=== PATIENT | male | born 1980 | race Caucasian/White ===

== ENCOUNTER 2019-03-07 12:22 | Emergency (ER) | payer OTHER, SELFPAY ==
[2019-03-07 12:29] VITALS: BMI 27.3
[2019-03-07 12:30] VITALS: BP 162/100; PULSE 70; RESP 15; TEMP 36.8; O2SAT 100
--- NOTE | 2019-03-07 12:50 | ED.WOUNDLAC ---
HPI - Wound/Laceration <ISAI Bazzi - Last Filed: 03/07/19 14:54> General Chief Complaint: Wound/Laceration Stated Complaint: Split scalp Time Seen by Provider: 03/07/19 12:28 Source: patient Mode of arrival: ambulatory Limitations: no limitations History of Present Illness HPI narrative: The patient is a 38-year-old male nonsmoker who does not take blood thinners presents with a chief complaint of laceration to the top of his head. He states he hit his head on the [employer] car. He believes his tetanus is up today in the past 5 years. He denies any LOC, neck pain or back pain. He denies any nausea or vomiting. States he was initially dazed but feels better now. He states his laceration bled a lot. He states this happened while he was getting ready to go hiking with his family. Related Data Allergies Allergy/AdvReac Type Severity Reaction Status Date / Time No Known Drug Allergies Allergy Verified 03/07/19 12:29 Review of Systems <ISAI Bazzi - Last Filed: 03/07/19 14:54> Review of Systems GENERAL: Denies chills, fatigue, malaise, fever, sweats. HEENT: Denies sinus pain, ear pain, sore throat, difficulty swallowing, dizziness. RESPIRATORY: Denies dyspnea, cough, wheezing, hemoptysis, sputum. CARDIOVASCULAR: Denies chest pain, palpitations, orthopnea, edema, GASTROINTESTINAL: Denies nausea, vomiting, abdominal pain, diarrhea, constipation, melena. : Denies dysuria, frequency, incontinence, hematuria, urinary retention. MUSCULOSKELETAL: denies weakness, joint pain, or bony pain SKIN: See HPI NEUROLOGIC: Denies weakness, headache, numbness, change in speech, confusion, seizures, incoordination. PSYCHIATRIC: No concerning psychosocial issues. 12 point review of systems is negative except for those stated above PFSH <ISAI Bzazi - Last Filed: 03/07/19 14:54> Social History Smoking Status: Never smoker Social History Smoking Status: Never smoker Exam <ZABRINA BazziSUSHIL - Last Filed: 03/07/19 14:54> Narrative Exam Narrative: GENERAL: This is a well-nourished, well-developed patient, in no acute distress HEAD: Atraumatic. Normocephalic. No temporal or scalp tenderness. EYES: Pupils equal round and reactive. Extraocular motions intact. No scleral icterus. No injection or drainage. ENT: Nose without bleeding, purulent drainage or septal hematoma. Throat without erythema, tonsillar hypertrophy or exudate. Uvula midline. Airway patent. No hemotympanum bilaterally. TMs pearly fields bilaterally. NECK: Trachea midline. No JVD or lymphadenopathy. Supple, nontender, no meningeal signs. CARDIOVASCULAR: Regular rate and rhythm RESPIRATORY: Clear to auscultation. Breath sounds equal bilaterally. No wheezes, rales, or rhonchi. No cough. No increased respiratory effort. No accessory muscle use. GASTROINTESTINAL: Abdomen soft, non-tender, nondistended. No hepato-splenomegaly, or palpable masses. No guarding. EXTREMITIES: No clubbing, cyanosis, or edema. No joint tenderness, effusion, or edema noted. BACK: Nontender without deformity or crepitance. No flank tenderness. NEURO: AOx3. Strength is equal upper and lower extremities bilaterally. Stable gait. No gross cranial nerve deficit. SKIN: Full thickness laceration noted scalp. 2.5 cm. Well-approximated. Linear No obvious muscle or tendon involvement.. No Jean signs. No periorbital ecchymosis. Initial Vital Signs Initial Vital Signs: Vital Signs Temperature 98.3 F 03/07/19 12:30 Pulse Rate 70 03/07/19 12:30 Respiratory Rate 15 03/07/19 12:30 Blood Pressure 162/100 H 03/07/19 12:30 Pulse Oximetry 100 03/07/19 12:30 <Farzana Pan DO - Last Filed: 03/09/19 23:18> Initial Vital Signs Initial Vital Signs: Vital Signs Temperature 98.3 F 03/07/19 12:30 Pulse Rate 70 03/07/19 12:30 Respiratory Rate 15 03/07/19 12:30 Blood Pressure 162/100 H 03/07/19 12:30 Pulse Oximetry 100 03/07/19 12:30 Procedures <ISAI Bazzi - Last Filed: 03/07/19 14:54> Laceration Repair Laceration 1: Site: scalp Size (cm): 2.5 Description: linear Depth: simple, single layer Local Anesthetic: other anesthetic (lido cream) Pre-repair: wound explored, irrigated extensively and deep structures intact (With sterile water, chlorhexidine) Skin layer closed with: jose (5) Scores <ZABRINA Bazzi - Last Filed: 03/07/19 14:54> GCS Martha coma scale eye opening: Spontaneous [place] coma scale verbal response: Orientated Martha coma scale motor response: Obey commands [place] coma scale total score: 15 Nexus Score for C-Spine Focal Neurologic deficit present: No Midline spinal tenderness present: No Altered level of conciousness present: No Intoxication present: No Distracting Injury Present: No Nexus Criteria for C-spine: 0 Course <ZABRINA Bazzi - Last Filed: 03/07/19 14:54> Orders Ordered: Discontinued Medications Ketorolac Tromethamine (Toradol) 60 mg IM NOW ONE Stop: 03/07/19 13:45 Last Admin: 03/07/19 14:25 Dose: 60 mg Lidocaine/Prilocaine (Lidocaine-Prilocaine Cream) 5 gm TOP NOW ONE Stop: 03/07/19 12:37 Last Admin: 03/07/19 12:54 Dose: 5 gm Vital Signs - 8 hr 03/07/19 12:30 03/07/19 14:38 Temperature 98.3 F Pulse Rate 70 64 Respiratory Rate 15 15 Blood Pressure [Right Arm] 162/100 H 138/94 H Pulse Oximetry 100 100 <Farzana Pan DO - Last Filed: 03/09/19 23:18> Orders Ordered: Discontinued Medications Ketorolac Tromethamine (Toradol) 60 mg IM NOW ONE Stop: 03/07/19 13:45 Last Admin: 03/07/19 14:25 Dose: 60 mg Lidocaine/Prilocaine (Lidocaine-Prilocaine Cream) 5 gm TOP NOW ONE Stop: 03/07/19 12:37 Last Admin: 03/07/19 12:54 Dose: 5 gm Vital Signs - 8 hr 03/07/19 12:30 03/07/19 14:38 Temperature 98.3 F Pulse Rate 70 64 Respiratory Rate 15 15 Blood Pressure [Right Arm] 162/100 H 138/94 H Pulse Oximetry 100 100 [facility] - Wound/Laceration <JUAN Bazzi-BC - Last Filed: 03/07/19 14:54> [facility] Narrative Medical decision making narrative: The patient is a 38-year-old male who presents with a chief complaint of laceration to his scalp. The wound was cleansed with chlorhexidine, sterile saline, numbed with lidocaine and stapled as per procedural note. His C-spine is cleared by nexus criteria. He had no complaints of neck or back pain. No loss of consciousness or remain GCS 15 throughout his stay in the emergency department. I discussed at length monitoring for signs and symptoms of infection such as redness pus fever etc. Encouraged follow-up with his PCP for staple removal in next 7-14 days. Discussed coming back to the ER for any acute concerns such as confusion etc. Patient has no questions or concerns upon discharge. States understanding of follow-up as well as return precautions. Discharge Plan Departure Patient Disposition: Home Clinical Impression: Laceration Discharge Date/Time: 03/07/19 14:54 Interventions: ED Discharge Assessment Last Done: 03/07/19 14:51 Instructions: DI for Laceration Repair, DI for Laceration Repair -- [place] Activity Restrictions/Additional Instructions: Please follow-up with a primary care provider in approximately 7-14 days for staple removal. Please monitor for signs and symptoms of infection such as redness, pus and fever. Please be re-evaluated if any of these occur. Please monitor for any confusion, repeat vomiting or signs of a head injury. Please monitor for any neurological changes. Please come back to the emergency department for any acute concerns. Referrals: [facility] [Provider Group] <Farzana Pan DO - Last Filed: 03/09/19 23:18> [facility] Attending Maryature Attestation: I was immediately available in the department for consultation. Documentation has been reviewed. I agree with assessment and plan.
--- NOTE | 2019-03-07 12:53 | ED_ITS ---
HPI - Wound/Laceration <ISAI Bazzi - Last Filed: 03/07/19 14:54> General Chief Complaint: Wound/Laceration Stated Complaint: Split scalp Time Seen by Provider: 03/07/19 12:28 Source: patient Mode of arrival: ambulatory Limitations: no limitations History of Present Illness HPI narrative: The patient is a 38-year-old male nonsmoker who does not take blood thinners presents with a chief complaint of laceration to the top of his head. He states he hit his head on the [employer] car. He believes his tetanus is up today in the past 5 years. He denies any LOC, neck pain or back pain. He denies any nausea or vomiting. States he was initially dazed but feels better now. He states his laceration bled a lot. He states this happened while he was getting ready to go hiking with his family. Related Data Allergies Allergy/AdvReac Type Severity Reaction Status Date / Time No Known Drug Allergies Allergy Verified 03/07/19 12:29 Review of Systems <ISAI Bazzi - Last Filed: 03/07/19 14:54> Review of Systems GENERAL: Denies chills, fatigue, malaise, fever, sweats. HEENT: Denies sinus pain, ear pain, sore throat, difficulty swallowing, dizziness. RESPIRATORY: Denies dyspnea, cough, wheezing, hemoptysis, sputum. CARDIOVASCULAR: Denies chest pain, palpitations, orthopnea, edema, GASTROINTESTINAL: Denies nausea, vomiting, abdominal pain, diarrhea, constipation, melena. : Denies dysuria, frequency, incontinence, hematuria, urinary retention. MUSCULOSKELETAL: denies weakness, joint pain, or bony pain SKIN: See HPI NEUROLOGIC: Denies weakness, headache, numbness, change in speech, confusion, seizures, incoordination. PSYCHIATRIC: No concerning psychosocial issues. 12 point review of systems is negative except for those stated above PFSH <ISAI Bazzi - Last Filed: 03/07/19 14:54> Social History Smoking Status: Never smoker Social History Smoking Status: Never smoker Exam <ZABRINA BazziSUSHIL - Last Filed: 03/07/19 14:54> Narrative Exam Narrative: GENERAL: This is a well-nourished, well-developed patient, in no acute distress HEAD: Atraumatic. Normocephalic. No temporal or scalp tenderness. EYES: Pupils equal round and reactive. Extraocular motions intact. No scleral icterus. No injection or drainage. ENT: Nose without bleeding, purulent drainage or septal hematoma. Throat without erythema, tonsillar hypertrophy or exudate. Uvula midline. Airway patent. No hemotympanum bilaterally. TMs pearly fields bilaterally. NECK: Trachea midline. No JVD or lymphadenopathy. Supple, nontender, no meningeal signs. CARDIOVASCULAR: Regular rate and rhythm RESPIRATORY: Clear to auscultation. Breath sounds equal bilaterally. No wheezes, rales, or rhonchi. No cough. No increased respiratory effort. No accessory muscle use. GASTROINTESTINAL: Abdomen soft, non-tender, nondistended. No hepato- splenomegaly, or palpable masses. No guarding. EXTREMITIES: No clubbing, cyanosis, or edema. No joint tenderness, effusion, or edema noted. BACK: Nontender without deformity or crepitance. No flank tenderness. NEURO: AOx3. Strength is equal upper and lower extremities bilaterally. Stable gait. No gross cranial nerve deficit. SKIN: Full thickness laceration noted scalp. 2.5 cm. Well-approximated. Linear No obvious muscle or tendon involvement.. No Jean signs. No periorbital ecchymosis. Initial Vital Signs Initial Vital Signs: Vital Signs Temperature 98.3 F 03/07/19 12:30 Pulse Rate 70 03/07/19 12:30 Respiratory Rate 15 03/07/19 12:30 Blood Pressure 162/100 H 03/07/19 12:30 Pulse Oximetry 100 03/07/19 12:30 <Farzana Pan DO - Last Filed: 03/09/19 23:18> Initial Vital Signs Initial Vital Signs: Vital Signs Temperature 98.3 F 03/07/19 12:30 Pulse Rate 70 03/07/19 12:30 Respiratory Rate 15 03/07/19 12:30 Blood Pressure 162/100 H 03/07/19 12:30 Pulse Oximetry 100 03/07/19 12:30 Procedures <ISAI Bazzi - Last Filed: 03/07/19 14:54> Laceration Repair Laceration 1: Site: scalp Size (cm): 2.5 Description: linear Depth: simple, single layer Local Anesthetic: other anesthetic (lido cream) Pre-repair: wound explored, irrigated extensively and deep structures intact (With sterile water, chlorhexidine) Skin layer closed with: edgar (5) Scores <ZABRINA Bazzi - Last Filed: 03/07/19 14:54> GCS [place] coma scale eye opening: Spontaneous Martha coma scale verbal response: Orientated [place] coma scale motor response: Obey commands Martha coma scale total score: 15 Nexus Score for C-Spine Focal Neurologic deficit present: No Midline spinal tenderness present: No Altered level of conciousness present: No Intoxication present: No Distracting Injury Present: No Nexus Criteria for C-spine: 0 Course <ZABRINA Bazzi - Last Filed: 03/07/19 14:54> Orders Ordered: Discontinued Medications Ketorolac Tromethamine (Toradol) 60 mg IM NOW ONE Stop: 03/07/19 13:45 Last Admin: 03/07/19 14:25 Dose: 60 mg Lidocaine/Prilocaine (Lidocaine-Prilocaine Cream) 5 gm TOP NOW ONE Stop: 03/07/19 12:37 Last Admin: 03/07/19 12:54 Dose: 5 gm Vital Signs - 8 hr 03/07/19 12:30 03/07/19 14:38 Temperature 98.3 F Pulse Rate 70 64 Respiratory Rate 15 15 Blood Pressure [Right Arm] 162/100 H 138/94 H Pulse Oximetry 100 100 <Farzana Pan DO - Last Filed: 03/09/19 23:18> Orders Ordered: Discontinued Medications Ketorolac Tromethamine (Toradol) 60 mg IM NOW ONE Stop: 03/07/19 13:45 Last Admin: 03/07/19 14:25 Dose: 60 mg Lidocaine/Prilocaine (Lidocaine-Prilocaine Cream) 5 gm TOP NOW ONE Stop: 03/07/19 12:37 Last Admin: 03/07/19 12:54 Dose: 5 gm Vital Signs - 8 hr 03/07/19 12:30 03/07/19 14:38 Temperature 98.3 F Pulse Rate 70 64 Respiratory Rate 15 15 Blood Pressure [Right Arm] 162/100 H 138/94 H Pulse Oximetry 100 100 [facility] - Wound/Laceration <JUAN Bazzi-BC - Last Filed: 03/07/19 14:54> [facility] Narrative Medical decision making narrative: The patient is a 38-year-old male who presents with a chief complaint of laceration to his scalp. The wound was cleansed with chlorhexidine, sterile saline, numbed with lidocaine and stapled as per procedural note. His C-spine is cleared by nexus criteria. He had no complaints of neck or back pain. No loss of consciousness or remain GCS 15 throughout his stay in the emergency department. I discussed at length monitoring for signs and symptoms of infection such as redness pus fever etc. Encouraged follow-up with his PCP for staple removal in next 7-14 days. Discussed coming back to the ER for any acute concerns such as confusion etc. Patient has no questions or concerns upon discharge. States understanding of follow-up as well as return precautions. Discharge Plan Departure Patient Disposition: Home Clinical Impression: Laceration Discharge Date/Time: 03/07/19 14:54 Interventions: ED Discharge Assessment Last Done: 03/07/19 14:51 Instructions: DI for Laceration Repair, DI for Laceration Repair -- [place] Activity Restrictions/Additional Instructions: Please follow-up with a primary care provider in approximately 7-14 days for staple removal. Please monitor for signs and symptoms of infection such as redness, pus and fever. Please be re-evaluated if any of these occur. Please monitor for any confusion, repeat vomiting or signs of a head injury. Please monitor for any neurological changes. Please come back to the emergency department for any acute concerns. Referrals: [facility] [Provider Group] <Farzana Pan DO - Last Filed: 03/09/19 23:18> [facility] Attending Maryature Attestation: I was immediately available in the department for consultation. Documentation has been reviewed. I agree with assessment and plan.
[2019-03-07] MEDS: LIDOCAINE/PRILOCAINE 5 GM TOP (12:54)
--- NOTE | 2019-03-07 12:56 | PC.NURSE ---
Full thickness laceration to top/front of scalp/head. Bleeding controlled [employer]. Wound cleansed with NS and topical numbing medicine applied per orders. Patient alert and oriented and answering questions appropriately. Denies N/V. TDaP UTD.
[2019-03-07] MEDS: KETOROLAC 60 MG/2 ML VIAL IM (14:25)
[2019-03-07 14:38] VITALS: BP 138/94; PULSE 64; RESP 15; O2SAT 100
== END 2019-03-07 14:54 | disposition home or self-care (01) ==
PROVIDERS: Emergency Provider Nurse Practitioner Family
DX: S01.01XA Laceration without foreign body of scalp, initial encounter (principal)
CPT/HCPCS: 12001; 96372; 99282; 99283; J1885

== ENCOUNTER → 2019-10-30 09:13 | Outpatient (CLI) | payer OTHER, SELFPAY ==
[2019-11-01 08:22] LABS: COVID19 Sendout Not Detected (Not Detected)
== END ==
PROVIDERS: Visit Provider Physician Assistant
DX: Z11.59 Encounter for screening for other viral diseases (principal)
CPT/HCPCS: 87635

== ENCOUNTER 2024-03-03 08:45 | Day surgery (SDC) | payer OTHER, SELFPAY ==
--- NOTE | 2024-03-03 | PATH_ITS ---
[facility] Accession Number: [id number] No. of containers..02 Tissue . 01 Material submitted: . PART A: colon - RANDOM COLON BIOPSIES PART B: colon - COLON POLYP @ 15 CM . 01 Diagnosis: Part A: RANDOM COLON BIOPSIES: Colonic mucosa with no diagnostic alterations. No active inflammation, granulomas, dysplasia, or malignancy identified. No evidence of colitis. . Part B: COLON POLYP @ 15 CM: Serrated polyp with crypt architectural features consistent with sessile serrated adenoma. [facility] 03/08/2024 1324 Local . 01 Electronically signed: . Mingo Yao MD, Pathologist NPI- [id number] . 01 Gross description: . A. Received in formalin with two patient identifiers and random colon, are six llamas soft tissue fragments, 0.2 to 0.6 cm in greatest dimension. Submitted in A1. . B. Received in formalin with two patient identifiers and colon polyp at 15 cm, are two llamas to brown soft tissue fragments, 0.5 to 1.1 cm in greatest dimension. Submitted in B1. ([id number]) /MRV 03/08/2024 1324 Local . 01 Pathologist provided ICD-10: D12.6 . 01 CPT . 443451, [id number] Specimen Comment: A courtesy copy of this report has been sent to [phone] Performed at: [address] [id number] MD Mingo Yao MD Phone: [phone]
[2024-03-03 09:12] VITALS: BP 164/104; PULSE 70; RESP 16; TEMP 36.4; O2SAT 100
--- NOTE | 2024-03-03 09:20 | PM.HP.1 ---
History of Present Illness History of Present Illness [place] [facility] [place]ative: Abdominal discomfort and bloating with loose stools. Need for colonoscopy [facility] Social History Smoking Status: Never smoker Meds Home Medications and Allergies Allergies Allergy/AdvReac Type Severity Reaction Status Date / Time No Known Drug Allergies Allergy Verified 03/03/24 09:12 Exam Narrative Exam Narrative: Oropharynx free of lesions Chest clear to auscultation percussion Cardiac exam reveals no S3 murmur Assessment & Plan Assessment & Plan narrative: Abdominal bloating discomfort and loose stools. Rule out underlying colitis colonoscopy with biopsies. Risks, benefits, alternatives have been explained. Time-Based Coding :: [TOTAL MINUTES] spent with patient and on the chart (including review of chart, obtaining history, exam, reviewing outside data, placing orders, documenting exam and treatment plan, and counseling patient) on [DATE].
--- NOTE | 2024-03-03 09:22 | PM.OP.COLON ---
Operative Date/Time/Diagnoses Date of procedure: 03/03/24 Pre-op diagnosis: See indication and findings Procedure & Clinicians Study performed: Colonoscopy Indications: Abdominal bloating discomfort and loose stools Surgeon: Sinai Lopez Procedure Notes Procedure in detail: After informed consent was obtained the patient was placed in left lateral decubitus position. The video colonoscope was introduced into the rectum slowly advanced cecum. Preparation was good. On slow withdrawal mucosa was carefully examined. The scope was removed. The patient tolerated procedure well. Blood loss none Complications none Sedation mac Findings 1. 1.2 cm pedunculated polyp at 15 cm hot snared and removed completely 2. Otherwise negative colonoscopy to cecum multiple random biopsies taken. Will be in touch regarding his polyp however he will need follow-up colonoscopy in 3 years.
[2024-03-03] MEDS: LACTATED RINGERS 1,000 ML 42 ML IV (09:27)
[2024-03-03 10:35] VITALS: BP 139/90; PULSE 85; RESP 20; TEMP 37.2; O2SAT 96
[2024-03-03 10:42] VITALS: BP 132/91; PULSE 77; RESP 20; TEMP 37.2; O2SAT 97
[2024-03-03 10:48] VITALS: BP 138/98; PULSE 69; RESP 18; TEMP 37.1; O2SAT 99
[2024-03-03 10:51] VITALS: BP 142/92; PULSE 71; RESP 16; TEMP 37.1; O2SAT 99
== END 2024-03-03 11:10 | disposition home or self-care (01) ==
PROVIDERS: Referring Provider Internal Medicine Gastroenterology; Visit Provider Internal Medicine Gastroenterology
PROC: 0DJD8ZZ Inspection of Lower Intestinal Tract, Via Natural or Artificial Opening Endoscopic (ICD-10-PCS; CPT 45378; principal; 2024-03-03 10:00)
DX: R19.7 Diarrhea, unspecified (principal); R14.0 Abdominal distension (gaseous); R10.9 Unspecified abdominal pain; D12.6 Benign neoplasm of colon, unspecified
CPT/HCPCS: 45385; 45380; J2704